=== PATIENT | female | born 1985 | race Caucasian/White ===

== ENCOUNTER 2020-08-03 00:05 | Emergency (ER) | payer SELFPAY ==
[2020-08-03] MEDS ORDERED: Bacitracin Oint 1 GM U/D Packet TOP ONE (00:07)
[2020-08-03] MEDS ORDERED: Diphtheria,Pertussis(Acell),Tetanus Vaccine 0.5 ML Syringe IM ONE (00:12)
--- NOTE | 2020-08-03 00:33 | EDM.PDOC ---
ED HPI GENERAL MEDICAL PROBLEM - General Chief Complaint: Laceration Stated Complaint: CUT RIGHT THUMB Time Seen by Provider: 08/03/20 00:19 Source of Information: Reports: Patient History Limitations: Reports: No Limitations - History of Present Illness INITIAL COMMENTS - FREE TEXT/NARRATIVE: Jeanne is a 35-year-old female presenting to the ED with a laceration to her distal right thumb. She cut it at work tonight at the [employer] with a knife. Her hand has been in dishwater since the injury that occurred at 2129. She tried to cover with a bandage but it would not stick. There is no active bleeding at this time. The wound is about 2.2 cm in length over the pad of the distal right thumb just beyond the DIP. She has normal range of motion. Neurovascular status is intact distal to the laceration. Her last tetanus was in 2013. Finger-Thumb Pain Score (Numeric/FACES): 6 ED ROS GENERAL - Review of Systems Review Of Systems: See Below Skin: Reports: Wound (2.2 cm laceration on the pad of the distal right thumb) Neurological: Reports: No Symptoms ED EXAM, SKIN/RASH Exam: See Below Exam Limited By: No Limitations General Appearance: Alert, No Apparent Distress Extremities: Normal Range of Motion, Other ED SKIN PROCEDURES - Laceration/Wound Repair Right Distal Digit - 1st (Thumb) Appearance: Subcutaneous Anesthetic Type: Local Local Anesthesia - Lidocaine (Xylocaine): 1% Plain Local Anesthetic Volume: 3cc Skin Prep: Saline Exploration/Debridement/Repair: Wound Explored, In a Bloodless Field, Explored to Base Closed with: Sutures Lac/Wound length In cm: 2.2 Suture Size: 4-0 # of Sutures: 4 Suture Type: Nylon, Interrupted Sterile Dressing Applied: Provider Tetanus Status Addressed: Yes Complications: No Course - Orders/Labs/Meds Orders: Active Orders 24 hr Category Date Time Status Vaccines to be Administered [RC] PER UNIT ROUTINE Care 08/03/20 00:12 Active Meds: Medications Discontinued Medications Generic Name Dose Route Start Last Admin Trade Name Freq PRN Reason Stop Dose Admin Bacitracin 1 dose 08/03/20 00:07 Bacitracin Oint 1 Gm U/D Packet TOP 08/03/20 00:08 ONETIME ONE Diphtheria/Tetanus/Acell Pertussis 0.5 ml 08/03/20 00:12 Diphtheria,Pertussis(Acell),Tetanus Vaccine 0.5 Ml Syringe IM 08/03/20 00:13 .ONCE ONE Lidocaine HCl 5 ml 08/03/20 00:07 Lidocaine 1% 5 Ml Sdv INJECT 08/03/20 00:08 ONETIME ONE - Re-Assessments/Exams Free Text/Narrative Re-Assessment/Exam: 08/03/20 00:33 patient sustained a laceration to the pad of her right thumb measuring 2.2 cm. This was washed out and closed using 4-0 Ethilon requiring 4 simple interrupted sutures. A likely bacitracin was applied and a dressing over this. 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 Sutures will need to be removed in 7 days which can be done at the clinic. Her tetanus status was due for a booster so this was performed today. Indications to return to the ED were discussed and she was discharged in satisfactory condition. Departure - Departure Time of Disposition: 00:34 Disposition: Home, Self-Care 01 Clinical Impression: Laceration of right thumb Qualifiers: Encounter type: initial encounter Damage to nail status: without damage Foreign body presence: without foreign body Qualified Code(s): S61.011A - Laceration without foreign body of right thumb without damage to nail, initial encounter - Discharge Information Instructions: Laceration Care, Adult, [id number], Sutures, Leidy, or Adhesive Wound Closure, [id number] Referrals: PCP,None [Primary Care Provider] - Care Plan Goals: We will start you on cephalexin which is an antibiotic to prevent infection in the skin. Please take 1 tablet 3 times a day for the next 7 days. Your sutures will need to be removed in 7 days which can be done at the clinic or in the ER. You typically do not need an appointment for either. Watch for any signs of infection. Keep the wound clean and dry at least for the next 24 hours until the scab conform. - Problem List & Annotations (1) Laceration of right thumb SNOMED Code(s): 59014442204717466 Code(s): S61.011A - LACERATION W/O FB OF RIGHT THUMB W/O DAMAGE TO NAIL, INIT Status: Acute Priority: Medium Current Visit: Yes Qualifiers: Encounter type: initial encounter Damage to nail status: without damage Foreign body presence: without foreign body Qualified Code(s): S61.011A - Laceration without foreign body of right thumb without damage to nail, initial encounter - Problem List Review Problem List Initiated/Reviewed/Updated: Yes - My Orders Last 24 Hours: My Active Orders 08/03/20 00:12 Vaccines to be Administered [RC] PER UNIT ROUTINE - Assessment/Plan Last 24 Hours: My Active Orders 08/03/20 00:12 Vaccines to be Administered [RC] PER UNIT ROUTINE
== END 2020-08-03 00:48 | disposition home or self-care (01) ==
LOC: JP.ED 00:05
DX: S61.011A Laceration without foreign body of right thumb without damage to nail, initial encounter (principal); Z23 Encounter for immunization; W26.0XXA Contact with knife, initial encounter
CPT/HCPCS: 12001; 90471; 90715; 99282-25